=== PATIENT | female | born 1985 | race Caucasian/White ===

== ENCOUNTER 2016-05-22 16:50 | Emergency (ER) | payer MEDICAID ==
[2016-05-22 16:51] VITALS: BMI 30.1
[2016-05-22 17:59] VITALS: O2SAT 100
[2016-05-22] MEDS ORDERED: Sodium Chloride 0.9% 500 ML IV ONE (20:24)
[2016-05-22] MEDS ORDERED: Sodium Chloride 0.9% 1,000 ML ONE (20:40)
[2016-05-22 20:49] LABS: BASO % 0.3 % (0.0-2.0); EOS # 0.1 K/uL (0.0-0.7); EOS % 1.2 % (0.0-4.0); HEMATOCRIT 35.1 % (34.0-47.0); LYMPH # 2.4 K/uL (1.0-4.3); MEAN CELL VOLUME 81.4 fL (81.0-99.0); MEAN CORPUSCULAR HEMOGLOBIN 26.8 pg (27.0-31.0); MEAN CORPUSCULAR HGB CONC 32.9 g/dL (33.0-37.0); MEAN PLATELET VOLUME 7.3 fL (7.2-11.7); MONO # 0.6 K/uL (0.0-0.8); MONO % 8.4 % (0.0-10.0); RED CELL DISTRIBUTION WIDTH 13.6 % (11.5-14.5); WHITE BLOOD COUNT 7.2 K/uL (4.8-10.8)
[2016-05-22 20:57] LABS: CHLORIDE 98 mmol/L (98-107); SODIUM 137 mmol/L (132-148)
[2016-05-22 20:58] LABS: POTASSIUM 3.7 mmol/L (3.6-5.2)
[2016-05-22 21:00] LABS: ALB/GLOB RATIO 1.4 (1.0-2.1); ALKALINE PHOSPHATASE 52 U/L (38-126); AST/SGOT 21 U/L (14-36); BILIRUBIN,TOTAL 0.4 mg/dL (0.2-1.3); BLOOD UREA NITROGEN 11 mg/dL (7-17); CARBON DIOXIDE 25 mmol/L (22-30); GFR AFRICAN-AMERICAN > 60; TOTAL PROTEIN 7.3 g/dL (6.3-8.3)
[2016-05-22 21:01] LABS: ALT/SGPT 20 U/L (9-52); CALCIUM 8.7 mg/dl (8.6-10.4); GLUCOSE,RANDOM 96 mg/dL (65-105)
--- NOTE | 2016-05-22 21:32 | C.PDOC ---
History Of Present Illness 30 year old patient presents to the ED complaining of abdominal pain and heavy vaginal bleeding that began earlier today. Patient's family member translated. Patient took an at-home test that was positive. Patient's last menstrual cycle was on 04/19/16. Patient is . Patient denies nausea, vomiting , diarrhea, dysuria, fever, or back pain. Time Seen by Provider: 05/22/16 19:44 Chief Complaint (Nursing): Female Genitourinary History Per: Patient, Family History/Exam Limitations: no limitations Onset/Duration Of Symptoms: Hrs (today) Current Symptoms Are (Timing): Still Present Severity: Moderate Pain Scale Rating Of: 4 Quality Of Discomfort: "Pain" Associated Symptoms: Other Alleviating Factors: None Recent travel outside of the [place]: No Abnormal Vaginal Bleeding: Yes Last Menstral Period: 04/19/16 Past Medical History Reviewed: Historical Data, Nursing Documentation, Vital Signs Vital Signs: Last Vital Signs Temp 97.6 F 05/22/16 23:11 Pulse 72 05/22/16 23:11 Resp 20 05/22/16 23:11 BP 100/66 05/22/16 23:11 Pulse Ox 100 05/22/16 23:11 - [facility] Procedures ASPIRAT CURET-POST DELIV (11/11/14) LOW CERVICAL (01/03/14) Family History: States: Unknown Family Hx - Social History Hx Alcohol Use: No Hx Substance Use: No - Immunization History Hx Tetanus Toxoid Vaccination: Yes Hx Influenza Vaccination: Yes Hx Pneumococcal Vaccination: Yes Review Of Systems Except As Marked, All Systems Reviewed And Found Negative. Constitutional: Negative for: Fever Gastrointestinal: Positive for: Abdominal Pain. Negative for: Nausea, Vomiting , Diarrhea Genitourinary: Positive for: Vaginal Bleeding. Negative for: Dysuria Musculoskeletal: Negative for: Back Pain Physical Exam - Physical Exam Appears: Non-toxic, No Acute Distress Skin: Warm, Dry Gastrointestinal/Abdominal: Soft, No Tenderness, No Guarding, No Rebound Back: Normal Inspection, No CVA Tenderness Pelvic: Vaginal Bleeding (moderately active with large clots), Other (internal OS closed; external OS open) Neurological/Psych: Oriented x3 ED Course And Treatment - Laboratory Results Result Diagrams: 05/22/16 20:41 05/22/16 20:41 O2 Sat by Pulse Oximetry: 100 (RA) Pulse Ox Interpretation: Normal - CT Scan/US first trimester Other Rad Studies (CT/US): Read By Radiologist (Bhaskar Newman MD), Radiology Report Reviewed CT/US Interpretation: Addendum created by Bhaskar Newman MD on 05/22/2016 10:19 PM Eastern Time ([place] & [place]). THIS REPORT CONTAINS FINDINGS THAT MAY BE CRITICAL TO PATIENT CARE. The. findings were verbally communicated via telephone conference with physician registered dental assistant rda. Marjorie Garcia PA-C at 10:19 PM EDT on 05/22/2016. The findings were acknowledged. and understood. Initial Report created on 05/22/2016 10:01 PM Eastern Time ([place] & [place]). EXAM: US First Trimester, Transabdominal. CLINICAL HISTORY: 30 years old, female; Signs and symptoms; Lmp or gestational age (in weeks): 04/19/2016; Other : Vaginal bleeding; . TECHNIQUE: Real-time transabdominal obstetrical ultrasound of the maternal pelvis and a first trimester. with image documentation. COMPARISON: No relevant prior studies available. FINDINGS: Gestation: Irregular gestational sac with internal echoes. No yolk sac. No pole. Mean sac. diameter of 1.8 cm, correlating with gestational age of 6 weeks 1 day. Uterus/cervix: No subchorionic hemorrhage. No cervical dilatation or effacement. Ovaries: RIGHT ovary: Probable corpus luteal cyst. LEFT ovary: Normal. No adnexal masses. Free fluid: Small free fluid within pelvis. IMPRESSION: 1. Findings suspicious but not diagnostic of failure. Short-term sonographic followup is. recommended. 2. Incidental/non- acute findings are described above. EXAM: US , Transvaginal. CLINICAL HISTORY: 30 years old, female; Signs and symptoms; Lmp or gestational age (in weeks): 04/19/2016; Other: Vaginal bleeding; . TECHNIQUE: Real-time transvaginal obstetrical ultrasound of the maternal pelvis and a first trimester . with image documentation. Transvaginal imaging was used for better evaluation of the fetus and. adnexa. COMPARISON: No relevant prior studies available. FINDINGS: Gestation: Irregular gestational sac with internal echoes. No yolk sac. No pole. Mean sac. diameter of 1.8 cm, correlating with gestational age of 6 weeks 1 day. Uterus/cervix: No subchorionic hemorrhage. No cervical dilatation or effacement. Ovaries: RIGHT ovary: Probable corpus luteal cyst. LEFT ovary: Normal. No adnexal masses. Free fluid: Small free fluid within pelvis. IMPRESSION: 1. Findings suspicious but not diagnostic of failure. Short-term sonographic followup is. recommended. 2. Incidental/non-acute findings are described above Progress Note: Plan: -Labs. -IV fluids. -1st trimester US. Progress: Clots removed from the vault with no active bleeding. Results discussed with patient. She understands the results and is instructed to follow up with gynecology for a repeat of labs with possible ultrasound. Disposition Counseled Patient/Family Regarding: Diagnosis, Need For Followup, Rx Given - Disposition Disposition: HOME/ ROUTINE Disposition Time: 23:06 Condition: GOOD Additional Instructions: Please follow up in [facility] clinic or ER for repeat BHCG in2 days ( 0n 05/24/16) Return to ER if increasing bleeding , dizziness, abdominal pain or worse Instructions: Threatened Miscarriage (ED) - Clinical Impression Clinical Impression: Threatened - PA / REGULATORY INTERNSHIP / Resident Statement MD/DO has reviewed & agrees with the documentation as recorded. - Scribe Statement The provider has reviewed the documentation as recorded by the Scribe Jackie Howe All medical record entries made by the Scribe were at my direction and personally dictated by me. I have reviewed the chart and agree that the record accurately reflects my personal performance of the history, physical exam, medical decision making, and the department course for this patient. I have also personally directed, reviewed, and agree with the discharge instructions and disposition.
[2016-05-22 21:59] LABS: RBC URINE 41434 /hpf (0-3); URINE BILIRUBIN NEGATIVE (NEGATIVE); URINE BLOOD 3+ (NEGATIVE); URINE CALCIUM OXALATE CRYSTALS MANY /hpf (<OCC); URINE GLUCOSE (UA) 1+ mg/dL (Normal); URINE KETONE NEGATIVE (NEGATIVE); URINE LEUKOCYTE ESTERASE NEG Leu/uL (Negative); URINE PROTEIN 2+ mg/dL (NEGATIVE); URINE UROBILINOGEN NORMAL mg/dL (0.2-1.0)
[2016-05-22 22:01] LABS: URINE COLOR RED (YELLOW)
[2016-05-22 22:02] LABS: WBC URINE 15 /hpf (0-5)
--- NOTE | 2016-05-22 22:02 | US ---
EXAM: US First Trimester, Transabdominal CLINICAL HISTORY: 30 years old, female; Signs and symptoms; Lmp or gestational age (in weeks): 04/19/2016; Other: Vaginal bleeding; TECHNIQUE: Real-time transabdominal obstetrical ultrasound of the maternal pelvis and a first trimester with image documentation. COMPARISON: No relevant prior studies available. FINDINGS: Gestation: Irregular gestational sac with internal echoes. No yolk sac. No pole. Mean sac diameter of 1.8 cm, correlating with gestational age of 6 weeks 1 day. Uterus/cervix: No subchorionic hemorrhage. No cervical dilatation or effacement. Ovaries: RIGHT ovary: Probable corpus luteal cyst. LEFT ovary: Normal. No adnexal masses. Free fluid: Small free fluid within pelvis. IMPRESSION: 1. Findings suspicious but not diagnostic of failure. Short-term sonographic followup is recommended. 2. Incidental/non-acute findings are described above. EXAM: US , Transvaginal CLINICAL HISTORY: 30 years old, female; Signs and symptoms; Lmp or gestational age (in weeks): 04/19/2016; Other: Vaginal bleeding; TECHNIQUE: Real-time transvaginal obstetrical ultrasound of the maternal pelvis and a first trimester with image documentation. Transvaginal imaging was used for better evaluation of the fetus and adnexa. COMPARISON: No relevant prior studies available. FINDINGS: Gestation: Irregular gestational sac with internal echoes. No yolk sac. No pole. Mean sac diameter of 1.8 cm, correlating with gestational age of 6 weeks 1 day. Uterus/cervix: No subchorionic hemorrhage. No cervical dilatation or effacement. Ovaries: RIGHT ovary: Probable corpus luteal cyst. LEFT ovary: Normal. No adnexal masses. Free fluid: Small free fluid within pelvis.
[2016-05-22 23:13] VITALS: BP 100/66; PULSE 72; RESP 20; TEMP 97.6
== END 2016-05-22 23:15 | disposition home or self-care (01) ==
LOC: C.ER 16:50
DX: O20.0 Threatened abortion (principal); Z3A.01 Less than 8 weeks gestation of pregnancy
CPT/HCPCS: 76805; 76817; 80053; 81001; 84702; 85025; 86850; 86900; 96360; 99284; J7040

== ENCOUNTER 2016-05-26 11:12 | Emergency (ER) | payer MEDICAID, OTHER ==
[2016-05-26 11:13] VITALS: BMI 30.1
[2016-05-26 11:28] VITALS: BP 97/65; PULSE 86; RESP 16; TEMP 97.6; O2SAT 98
--- NOTE | 2016-05-26 13:46 | C.PDOC ---
History Of Present Illness 30 yr old female presents to the ER for a repeat Beta quant. Patient was seen in this ED on 05/22/2016 for vaginal bleeding, was diagnosed with threaten and instructed to return for a repeat beta in 48 hours. Patient reports that her bleeding has decreased and she has been feeling better. She denies fever/chills, chest pain, SOB, nausea, vomiting, abdominal pain, diarrhea , dysuria. Time Seen by Provider: 05/26/16 11:42 Chief Complaint (Nursing): Medical Clearance History Per: Patient History/Exam Limitations: no limitations Onset/Duration Of Symptoms: Days Current Symptoms Are (Timing): Better Past Medical History Reviewed: Historical Data, Nursing Documentation, Vital Signs Vital Signs: Last Vital Signs Temp 97.6 F 05/26/16 11:27 Pulse 86 05/26/16 11:27 Resp 16 05/26/16 11:27 BP 97/65 L 05/26/16 11:27 Pulse Ox 98 05/26/16 14:29 - [facility] Procedures ASPIRAT CURET-POST DELIV (11/11/14) LOW CERVICAL (01/03/14) Family History: States: No Known Family Hx - Social History Hx Alcohol Use: No Hx Substance Use: No - Immunization History Hx Tetanus Toxoid Vaccination: Yes Hx Influenza Vaccination: Yes Hx Pneumococcal Vaccination: Yes Review Of Systems Except As Marked, All Systems Reviewed And Found Negative. Constitutional: Negative for: Fever, Chills Cardiovascular: Negative for: Chest Pain Respiratory: Negative for: Shortness of Breath Gastrointestinal: Negative for: Nausea, Vomiting, Abdominal Pain, Diarrhea Genitourinary: Positive for: Vaginal Bleeding. Negative for: Dysuria Physical Exam - Physical Exam Appears: Well, Non-toxic, No Acute Distress Skin: Normal Color, Warm, Dry, No Rash Oral Mucosa: Moist Cardiovascular: Rhythm Regular Respiratory: Normal Breath Sounds, No Rales, No Rhonchi, No Wheezing Gastrointestinal/Abdominal: Normal Exam, Bowel Sounds, Soft, No Tenderness, No Guarding, No Rebound Neurological/Psych: Oriented x3 Gait: Steady ED Course And Treatment O2 Sat by Pulse Oximetry: 98 (RA) Pulse Ox Interpretation: Normal Progress Note: Beta quant ordered and reviewed - has dropped appropriately when compared to prior level. Patient instructed to follow up with her mechanic foreman in 1- 2 days. She was given copies of her beta level. She understands she should return to ED if she develops worsening symptoms. Disposition Counseled Patient/Family Regarding: Diagnosis, Need For Followup - Disposition Referrals: [facility] [Outside] Disposition: HOME/ ROUTINE Disposition Time: 13:45 Condition: STABLE Additional Instructions: FOLLOW UP WITH YOUR MILLING GENERAL SUPERINTENDENT IN 1-2 DAYS FOR FURTHER EVALUATION RETURN TO EMERGENCY ROOM IF SYMPTOMS WORSEN Instructions: Spontaneous Miscarriage (ED) Print Language: BURMESE - POA Present On Arrival: None - Clinical Impression Clinical Impression: Spontaneous - Scribe Statement The provider has reviewed the documentation as recorded by the Aretha Becker Provider Attestation: All medical record entries made by the Aretha were at my direction and personally dictated by me. I have reviewed the chart and agree that the record accurately reflects my personal performance of the history, physical exam, medical decision making, and the department course for this patient. I have also personally directed, reviewed, and agree with the discharge instructions and disposition.
== END 2016-05-26 14:00 | disposition home or self-care (01) ==
LOC: C.ER 11:12
DX: O03.9 Complete or unspecified spontaneous abortion without complication (principal)

== ENCOUNTER 2018-02-12 05:27 | Emergency (ER) | payer OTHER ==
--- NOTE | 2018-02-12 10:42 | US ---
Date of service: 02/12/2018 PROCEDURE: LIMITED OBSTETRIC ULTRASOUND/BIOPHYSICAL PROFILE HISTORY: UNK dates; Prev C/S x 2 COMPARISON: None available. TECHNIQUE: Limited ultrasonography of was performed using transabdominal technique with biophysical profile also performed. FINDINGS: A single viable intrauterine gestation is identified in cephalic lie with a posterior fundal placenta and average ultrasonic age of 37 weeks 1 day. Posterior fundal placenta is identified without abruption or previa. Cervical length measures 3.60 cm, with closed os, and cardiac activity measures 152 beats per minute. The following mean biometry was obtained: Biparietal diameter 9.2 cm corresponds to 37 weeks 3 days. Head circumference 32.9 cm corresponds to 37 weeks 3 days. Abdominal circumference 33.5 cm corresponds to 37 weeks 2 days. Femur length 7.2 cm corresponds to 36 weeks 4 days. HC/AC ratio 0.98 which falls within the normal range. Estimated weight 3139 g or 6 lb 15 oz. Estimated date of delivery 03/04/2018. Last menstrual period is reported 06/21/2017 suggesting 33 week 5 day gestation, discrepant from average ultrasonic age 37 weeks 1 day. anatomy is limited due to stage of development and lie. No gross hydrocephalus is appreciated. stomach is identified. Biophysical profile: breathing 2 body movement 2 tone 2 Amniotic fluid 2 (DOTTIE 17.72 cm) TOTAL SCORE: 8/8. IMPRESSION: A single viable intrauterine gestation is identified in cephalic lie with average ultrasonic age of 37 weeks 1 day compared to LMP derived dates of 33 weeks 5 days. Clinically correlate further. Very limited anatomical survey. Biophysical profile score: 8/8. Please see details above.
[2018-02-12 11:30] LABS: BASO % 0.2 % (0.0-2.0); EOS % 0.2 % (0.0-4.0); HEMOGLOBIN 11.2 g/dL (11.0-16.0); LYMPH # 1.4 K/uL (1.0-4.3); LYMPH % 18.7 % (20.0-40.0); MEAN CELL VOLUME 84.9 fL (81.0-99.0); MEAN CORPUSCULAR HEMOGLOBIN 28.4 pg (27.0-31.0); MEAN CORPUSCULAR HGB CONC 33.4 g/dL (33.0-37.0); MONO # 0.4 K/uL (0.0-0.8); MONO % 5.4 % (0.0-10.0); NEUT # 5.8 K/uL (1.8-7.0); NEUT % 75.5 % (50.0-75.0); RBC 3.94 Mil/uL (3.80-5.20); RED CELL DISTRIBUTION WIDTH 14.6 % (11.5-14.5); WHITE BLOOD COUNT 7.7 K/uL (4.8-10.8)
[2018-02-12 11:33] LABS: URINE BILIRUBIN NEGATIVE (NEGATIVE); URINE BLOOD NEGATIVE (NEGATIVE); URINE CLARITY Clear (Clear); URINE COLOR Straw (YELLOW); URINE GLUCOSE (UA) NORMAL (Normal); URINE LEUKOCYTE ESTERASE NEG Leu/uL (Negative); URINE PROTEIN NEGATIVE (NEGATIVE); URINE UROBILINOGEN NORMAL mg/dL (0.2-1.0)
[2018-02-12 12:10] LABS: HEPATITIS B SURFACE AG Negative (NEGATIVE)
[2018-02-12 12:16] LABS: HEPATITIS A IGM NEGATIVE (NEGATIVE); HEPATITIS B CORE AB NEGATIVE (NEGATIVE)
[2018-02-12 12:28] LABS: HEPATITIS C ANTIBODY NEGATIVE (NEGATIVE)
[2018-02-12 12:55] LABS: BARBITURATES, UR NEGATIVE (NEGATIVE); BENZODIAZEPINES, UR NEGATIVE (NEGATIVE); OPIATES, UR NEGATIVE (NEGATIVE); PHENCYCLIDINE, UR NEGATIVE (NEGATIVE)
--- NOTE | 2018-02-12 19:05 | OBHP ---
Datetime: 02/12/2018 17:26 IP Adm Impression: Term, intrauterine IP Chief Complaint Other: Leakage of fluid(?); abdominal pain IP Adm Impression Other: Previous C/S x 2 IP Admit Plan: Discharge home Admit Comment, IP Provider: BIRD historical interpreter [id number] 32 y.o. , LMP unknown, STEFANIA 03/12/18, EGA 36 weeks, per patient , c/o abdominal pain onset 1 900 hours 01/2418, and passage of fluid per vagina at 0300 hours; pain got a little bit stronger. (+) AFM; denies vaginal bleeding. care: Dr. Claus Gallardo ([facility]): 1st visit "at about 4 months"; most r ecent visit 01/01/18 ... "he just called me yesterday, told me to come in 02/14/18". Patient denies a ny issues other than Previous C/S x 2; h/o multifetal gestation. P Ob: C/S x 2: 09/28/2014, twins, female 3 Kg, male 2.5 Kg, [facility]; no complications. 01/03/2014, f emale, 3+ Kg, [facility], no complications. Spont Ab x 2 (patient did not recall when; info found in EMR at ): 10/2014 with D_C; 05/2016, no D_C. No other complications appreciated P LIDDER: age at menarche - unk x monthly x 5 PMH: denies PSH: C/S x 2; D_C NKDA Meds: PNV - last took 2 days ago Soc Hx: denies tobacco, illicit drug, EtOH use. x 7 years ago. Homemaker Fam Hx: Mother alive 60 or 65 y.o. - no med issues. Father - age and reason unknown P.E.: as above. WD in NAD. Awake, alert, oriented to time, person and place. Pleasant and cooperat julio. Accompained by and female cousin (asked to leave room at beginning of interview) Labs: Ultrasound: AGA 37w 1d, cephalic, Fundal posterior placenta; EFW 6lb 15oz, DOTTIE 17.72cm. Assessment: 32 y.o. P2023, 37w 1d, prev C/S x 2. Not in labor. Category 1 tracing. Results of ult rasound D/W patient. Patient encouraged to increase p.o. intake of fluids/water; reassured physical d iscomfort are wnl for order of . Patient expressed an understanding. Patient in good spirits . Patient clinically stable. Plan: 1) Discharge home 2) Reviewed S/S labor 3) Keep appointment, 02/14/18 Pelvic Type - PN: Adequate Extremities - PN: Normal Abdomen - PN: Normal Back - PN: Normal Breast - PN: Not Done Lungs - PN: Normal Heart - PN: Normal Thyroid - PN: Not Done Neurologic - PN: Normal HEENT - PN: Normal General - PN: Normal Presentation-Admit: Vertex FHR - Baseline A Provider: 150 Membranes, Provider: Intact Contraction Comments Provider: none Comments, ACOG Physical Exam: Abdomen: Gravid. Soft. Non tender in all quadrants Perineum: dry Sterile speculum exam: no pooling; nitrazine (-) All other systems reviewed and are negative Gestation - Est Wks by US: 36.0 Pool Provider: Negative Nitrazine Provider: Negative IP Hx Assessment: No records available EGA AdmitDate IP: 36.0 Vital Signs Provider: Reviewed IP Chief Complaint: Other NICHD Variability Prov Fetus A: Moderate 6-25bpm NICHD Accel Fetus A IP Provider: [id number] FHR Category Provider Fetus A: Category I NICHD Decel Fetus A IP Provider: None Dilatation, Provider: 0 Effacement, Provider: long Genitourinary Exam: Normal DTRs - PN: Not Done
[2018-02-14 17:32] VITALS: BP 106/64; PULSE 87; RESP 18; TEMP 98; O2SAT 100
== END 2018-02-12 10:38 | disposition home or self-care (01) ==
LOC: C.EROB 05:27
DX: O26.893 Other specified pregnancy related conditions, third trimester (principal); R10.9 Unspecified abdominal pain; Z3A.37 37 weeks gestation of pregnancy

== ENCOUNTER 2018-05-16 18:11 | Emergency (ER) | payer OTHER ==
[2018-05-16 18:11] VITALS: BMI 30.1
[2018-05-16 18:23] VITALS: BP 119/76; PULSE 65; RESP 21; TEMP 97.7; O2SAT 100
--- NOTE | 2018-05-16 19:48 | C.PDOC ---
History Of Present Illness 32 y/o female presents to the ER complaining of toothache which has been present for the past 2 days. Patient states that she has a missing left bottom tooth. Denies having fever and chills. Time Seen by Provider: 05/16/18 19:08 Chief Complaint (Nursing): Dental Pain History Per: Patient History/Exam Limitations: no limitations Onset/Duration Of Symptoms: Days Current Symptoms Are (Timing): Still Present Severity: Moderate Past Medical History Reviewed: Historical Data, Nursing Documentation, Vital Signs Vital Signs: Last Vital Signs Temp 97.7 F 05/16/18 18:20 Pulse 65 05/16/18 18:20 Resp 21 05/16/18 18:20 BP 119/76 05/16/18 18:20 Pulse Ox 100 05/16/18 18:20 - Medical History PMH: No Chronic Diseases Denies: Chronic Kidney Disease, Sexually Transmitted Disease Other Surgeries: Hx of surgeries - [facility] Procedures ASPIRAT CURET-POST DELIV (11/11/14) LOW CERVICAL (01/03/14) Family History: States: No Known Family Hx - Social History Hx Alcohol Use: No Hx Substance Use: No - Immunization History Hx Tetanus Toxoid Vaccination: Yes Hx Influenza Vaccination: Yes Hx Pneumococcal Vaccination: Yes Review Of Systems Constitutional: Negative for: Fever, Chills ENT: Positive for: Mouth Pain Physical Exam - Physical Exam Appears: Non-toxic, No Acute Distress Skin: Normal Color, Warm, Dry Head: Atraumatic, Normacephalic Eye(s): bilateral: Normal Inspection Oral Mucosa: Moist Teeth: Other (open socket to left lower mandible) Gingiva: No Swelling, No Abscess Neurological/Psych: Oriented x3, Normal Speech ED Course And Treatment O2 Sat by Pulse Oximetry: 100 (RA) Pulse Ox Interpretation: Normal Medical Decision Making Medical Decision Making: Patient has been discharged with prescriptions for pain medications and instructed to follow up with dentist. Disposition Counseled Patient/Family Regarding: Diagnosis, Need For Followup, Rx Given - Disposition Disposition: HOME/ ROUTINE Disposition Time: 19:46 Condition: STABLE Prescriptions: Ibuprofen [Motrin Tab] 800 mg PO TID PRN #21 tab PRN Reason: Pain, Moderate (4-7) Instructions: Dental Pain (DC) Forms: [facility] (German), General Discharge Instructions - Clinical Impression Clinical Impression: Dental caries, Pain due to dental caries - PA / CONTENT ARCHITECT / Resident Statement MD/DO has reviewed & agrees with the documentation as recorded. - Scribe Statement The provider has reviewed the documentation as recorded by the Scribe Sylvia Castellano Provider Attestation All medical record entries made by the Scribe were at my direction and personally dictated by me. I have reviewed the chart and agree that the record accurately reflects my personal performance of the history, physical exam, medical decision making, and the department course for this patient. I have also personally directed, reviewed, and agree with the discharge instructions and disposition.
== END 2018-05-16 20:07 | disposition home or self-care (01) ==
LOC: C.ER 18:11
DX: K02.9 Dental caries, unspecified (principal)